=== PATIENT | female | born 1965 | race African-American/Black ===

== ENCOUNTER 2017-06-04 18:23 | Emergency (ER) | payer MEDICARE, MEDICAID ==
[~2017-06-04] VITALS: Ht 165.1 cm; Wt 84.8 kg
[~2017-06-04 18:23] MED LIST: APIX5TAB PO; ASPI-516 PO; ASPI81TA81; ATEN25TA PO; BECL80AE3 INH; CETI10CH CHEW; CLON0.1T PO; CYCL5TAB PO; FLUT50SP EACH NARE; LOSA25TA PO; MELA1TAB16; METH1POW42; METO50TA PO; MONT10TA4 PO; NAPR500T2 PO; OMEP20TA93 PO; SERT-132 PO; TRAM50TA PO; VENTAER INH
[2017-06-04 18:41] VITALS: BP 174/75; PULSE 86; RESP 16; TEMP 98.9; O2SAT 99
--- NOTE | 2017-06-04 19:46 | PD ---
HPI Chief Complaint: Dizziness Time Seen by Provider: 19:44 Travel History International Travel<30 days: No Contact w/Intl Traveler<30days: No Traveled to known affect area: No History of Present Illness HPI The patient is a 51-year-old female that complains of vertigo and elevated blood pressure for 3 days. The patient has been stable switched from atenolol 50 mg twice daily to metoprolol 50 mg twice daily and the patient states her pressure is elevated since this happened and she does not like the metoprolol. She states she has an irregular heartbeat and believes this is why she is on Eliquis. She is actually not taking the Eliquis because she states it gives her headache. She states she has a production repairer in [place] and a primary care physician and [place]. She says she is going to find another production repairer because he does not like this production repairer. She states she has been nauseated without vomiting for 2 days. She states she has a gradual onset headache in the bilateral occipital area for the last few days. The headache as a 6/10 and dull. She does have tinnitus in the right ear for the last 3 days. PFSH Past Medical History Hx Anticoagulant Therapy: Yes (asa 81mg) Anxiety: Yes Cardiac Catheterization: Yes Cardiovascular Problems: Yes (htn on meds) Coronary Artery Disease: Yes Diminished Hearing: No Hypertension: Yes Respiratory: Yes (asthma) ?: Not Tubal Ligation: Yes Past Surgical History Cardiac Surgery: Yes (age 3) Coronary Artery Bypass Graft: Yes Social History Alcohol Use: No Tobacco Use: No Substance Use: No Allergies-Medications (Allergen,Severity, Reaction): Coded Allergies: doxycycline (Verified Allergy, Severe, 06/04/17) headache, irregular heartbeat lidocaine (Verified Allergy, Severe, shaking, nerves, nausea , 06/04/17) lisinopril (Verified Allergy, Severe, 06/04/17) heart fluttering, irregular heartbeat minocycline (Verified Allergy, Severe, 06/04/17) headache, irregular heartbeat tigecycline (Verified Allergy, Severe, 06/04/17) headache, irregular heartbeat sumatriptan (Verified Allergy, Unknown, 06/04/17) Reported Meds & Prescriptions Reported Meds & Active Scripts Active Meclizine (Meclizine HCl) 25 Mg Tab 25 Mg PO TID PRN Zofran (Ondansetron HCl) 8 Mg Tab 8 Mg PO TID Naproxen 500 Mg Tab 500 Mg PO BID Take with food Metoprolol Tartrate 50 Mg Tab 50 Mg PO BID Fluticasone Nasal [place] 50 Mcg/Act Naspr 1-2 [place] EACH NARE HS Use regularly for 4-6 weeks then stop. Take 2 week breaks before restarting. Reported Eliquis (Apixaban) 5 Mg Tab 5 Mg PO BID Managed by Anthropometrist [place] Nighttime 2 mg (Melatonin-Black Cohosh-Soy Iso) 1 Tab Tab Clonidine (Clonidine HCl) 0.1 Mg Tab 0.1 Mg PO DIRECTED Tramadol (Tramadol HCl) 50 Mg Tab 50 Mg PO DIRECTED PRN Managed by Pain Mgmt Sertraline (Sertraline HCl) 50 Mg Tab 50 Mg PO BID Managed by Psychiatrist Qvar Inh (Beclomethasone Dipropionate) 80 Mcg/Act Aero 1 Puff INH BID Omeprazole 20 Mg Tab 20 Mg PO DAILY Losartan (Losartan Potassium) 25 Mg Tab 25 Mg PO DAILY Aspir-81 (Aspirin) 81 Mg Tabdr Ventolin Hfa 18 GM Inh (Albuterol Sulfate) 90 Mcg/Act Aer 2 Puff INH Q4-6H PRN Methocarbamol (Methocarbamol (Bulk)) Unknown Strength Pow Unknown Dose Managed by Pain Mgmt Montelukast (Montelukast Sodium) 10 Mg Tab 10 Mg PO HS Flexeril (Cyclobenzaprine HCl) 5 Mg Tab 5 Mg PO BID Managed by Pain Mgmt Cetirizine (Cetirizine HCl) 10 Mg Chew 10 Mg CHEW DAILY Review of Systems Except as stated in HPI: all other systems reviewed are Neg Physical Exam Narrative GENERAL: The patient is alert, oriented 3 and slight apparent distress with her headache. Her vital signs show blood pressure 170/75 but are otherwise normal. SKIN: Focused skin assessment warm/dry. HEAD: Atraumatic. Normocephalic. EYES: Pupils equal and round. No scleral icterus. No injection or drainage. ENT: No nasal bleeding or discharge. Mucous membranes pink and moist. The tympanic membranes are clear and the throat is clear. NECK: Trachea midline. No JVD. There is no meningismus and the patient flexes neck fully without any hesitation so that the chin touches the chest. CARDIOVASCULAR: Regular rate and rhythm. No murmur appreciated. RESPIRATORY: No accessory muscle use. Clear to auscultation. Breath sounds equal bilaterally. GASTROINTESTINAL: Abdomen soft, non-tender, nondistended. Hepatic and splenic margins not palpable. MUSCULOSKELETAL: No obvious deformities. No clubbing. No cyanosis. No edema. NEUROLOGICAL: Awake and alert. No obvious cranial nerve deficits. Motor grossly within normal limits. Normal speech and gait. PSYCHIATRIC: Appropriate mood and affect; insight and judgment normal. Data Data Last Documented VS Vital Signs Date Time Temp Pulse Resp B/P (MAP) Pulse Ox O2 Delivery O2 Flow Rate FiO2 06/04/17 21:22 70 16 143/71 (95) 98 Room Air 06/04/17 18:41 98.9 Orders Orders Electrocardiogram (06/04/17 19:46) Complete Blood Count With Diff (06/04/17 19:46) Comprehensive Metabolic Panel (06/04/17 19:46) Troponin I (06/04/17 19:46) Urinalysis - C+S If Indicated (06/04/17 19:46) Ondansetron Inj (Zofran Inj) (06/04/17 20:00) Meclizine (Antivert) (06/04/17 20:00) Ct Brain W/O Iv Contrast(Rout) (06/04/17 19:52) Ed Discharge Order (06/04/17 21:55) Labs Laboratory Tests Test 06/04/17 20:12 06/04/17 21:25 White Blood Count 11.7 TH/MM3 Red Blood Count 4.08 MIL/MM3 Hemoglobin 11.8 GM/DL Hematocrit 35.7 % Mean Corpuscular Volume 87.4 FL Mean Corpuscular Hemoglobin 28.9 PG Mean Corpuscular Hemoglobin Concent 33.1 % Red Cell Distribution Width 13.2 % Platelet Count 342 TH/MM3 Mean Platelet Volume 8.3 FL Neutrophils (%) (Auto) 55.9 % Lymphocytes (%) (Auto) 32.7 % Monocytes (%) (Auto) 7.6 % Eosinophils (%) (Auto) 2.6 % Basophils (%) (Auto) 1.2 % Neutrophils # (Auto) 6.6 TH/MM3 Lymphocytes # (Auto) 3.8 TH/MM3 Monocytes # (Auto) 0.9 TH/MM3 Eosinophils # (Auto) 0.3 TH/MM3 Basophils # (Auto) 0.1 TH/MM3 CBC Comment DIFF FINAL Differential Comment Blood Urea Nitrogen 11 MG/DL Creatinine 0.83 MG/DL Random Glucose 96 MG/DL Total Protein 7.8 GM/DL Albumin 3.4 GM/DL Calcium Level 8.4 MG/DL Alkaline Phosphatase 92 U/L Aspartate Amino Transf (AST/SGOT) 18 U/L Alanine Aminotransferase (ALT/SGPT) 25 U/L Total Bilirubin 0.3 MG/DL Sodium Level 139 MEQ/L Potassium Level 3.5 MEQ/L Chloride Level 107 MEQ/L Carbon Dioxide Level 25.8 MEQ/L Anion Gap 6 MEQ/L Estimat Glomerular Filtration Rate 87 ML/MIN Troponin I LESS THAN 0.02 NG/ML Urine Color YELLOW Urine Turbidity CLEAR Urine pH 6.0 Urine Specific [place] 1.015 Urine Protein NEG mg/dL Urine Glucose (UA) NEG mg/dL Urine Ketones NEG mg/dL Urine Occult Blood MOD Urine Nitrite NEG Urine Bilirubin NEG Urine Leukocyte Esterase NEG Urine RBC 9-14 /hpf Urine WBC 0-2 /hpf Urine Squamous Epithelial Cells 6-8 /hpf Urine Bacteria NONE /hpf Microscopic Urinalysis Comment CULT NOT INDICATED MDM Medical Decision Making Medical Screen Exam Complete: Yes Emergency Medical Condition: Yes Medical Record Reviewed: Yes Interpretation(s) The CBC shows a white count 11,700 but is otherwise normal. The complete metabolic profile shows a GFR of 87 but is otherwise normal. The troponin I is normal. The urinalysis shows moderate occult blood and 9-14 red cells but is otherwise unremarkable and culture is not indicated. Differential Diagnosis Hypo-/hyperglycemia, electrolyte disorder, intracranial bleed, intracranial mass , hypertensive urgency, hypertensive headache, viral labyrinthitis, benign positional vertigo Narrative Course The patient has vertigo. This is likely due to viral labyrinthitis. She likely has a viral gastritis as well. The tinnitus in the right ear suggests right ear involvement with labyrinthitis. Diagnosis Primary Impression: Viral labyrinthitis Additional Impression: Viral gastritis Additional Instructions: Make sure you stay well-hydrated. Also, as we discussed, because of about driving when you have the vertigo. He may not be able to drive the vertigo is significant. Follow-up with your primary care physician next week. Med/Other Pt SpecificInfo: Prescription(s) given Scripts Meclizine (Meclizine) 25 Mg Tab 25 MG PO TID Y for VERTIGO, #30 TAB 0 Refills Prov: Charlie Hall MD 06/04/17 Ondansetron (Zofran) 8 Mg Tab 8 MG PO TID for Nausea/Vomiting, #30 TAB 0 Refills Prov: Charlie Hall MD 06/04/17 Disposition: 01 DISCHARGE HOME Condition: Stable Charlie Hall MD Jun 04, 2017 19:46
[2017-06-04 19:51] VITALS: BP 165/82; PULSE 84; RESP 16; O2SAT 99
[2017-06-04] MEDS ORDERED: ONDANSETRON HCL 4 MG/2 ML VIAL IV ONE (20:00)
[2017-06-04] MEDS ORDERED: MECLIZINE HCL 25 MG TAB PO ONE (20:00)
[2017-06-04 20:24] LABS: AUTOMATED NEUTROPHIL # 6.6 TH/MM3 (1.8-7.7); BASOPHIL # 0.1 TH/MM3 (0-0.2); BASOPHIL % 1.2 % (0.0-2.0); EOSINOPHIL # 0.3 TH/MM3 (0-0.4); EOSINOPHIL % 2.6 % (0.0-4.0); HEMATOCRIT 35.7 % (35.0-46.0); HEMOGLOBIN 11.8 GM/DL (11.6-15.3); LYMPH % 32.7 % (9.0-44.0); LYMPHOCYTE # 3.8 TH/MM3 (1.0-4.8); MEAN CELL VOLUME 87.4 FL (80.0-100.0); MEAN CORPUSCULAR HEMOGLOBIN 28.9 PG (27.0-34.0); MEAN CORPUSCULAR HGB CONC 33.1 % (32.0-36.0); MEAN PLATELET VOLUME 8.3 FL (7.0-11.0); MONO % 7.6 % (0.0-8.0); MONOCYTE # 0.9 TH/MM3 (0-0.9); NEUT % 55.9 % (16.0-70.0); PLATELET COUNT 342 TH/MM3 (150-450); RED BLOOD COUNT 4.08 MIL/MM3 (4.00-5.30); RED CELL DISTRIBUTION WIDTH 13.2 % (11.6-17.2); WHITE BLOOD COUNT 11.7 TH/MM3 (4.0-11.0)
[2017-06-04 20:33] LABS: CHLORIDE 107 MEQ/L (98-107); SODIUM (NA) 139 MEQ/L (136-145)
[2017-06-04 20:36] LABS: ALBUMIN 3.4 GM/DL (3.4-5.0); BICARBONATE 25.8 MEQ/L (21.0-32.0); CALCIUM 8.4 MG/DL (8.5-10.1); GLUCOSE,RANDOM 96 MG/DL (74-106)
[2017-06-04 20:37] LABS: BLOOD UREA NITROGEN 11 MG/DL (7-18)
[2017-06-04 20:39] LABS: ALT (GPT) 25 U/L (10-53); AST (GOT) 18 U/L (15-37)
[2017-06-04 20:40] LABS: CREATININE 0.83 MG/DL (0.50-1.00); GLOMERULAR FILTRATION RATE 87 ML/MIN (>89)
[2017-06-04 20:41] LABS: TOTAL BILIRUBIN ADULT 0.3 MG/DL (0.2-1.0); TOTAL PROTEIN 7.8 GM/DL (6.4-8.2)
[2017-06-04 20:42] LABS: ALKALINE PHOSPHATASE 92 U/L (45-117)
[2017-06-04 20:44] LABS: TROPONIN I LESS THAN 0.02 NG/ML (0.02-0.05)
--- NOTE | 2017-06-04 20:46 | RADRPT ---
EXAM DATE/TIME: 06/04/2017 20:17 [facility] COMPARISON: No previous studies available for comparison. INDICATIONS : High blood pressure, vertigo X 3days RADIATION DOSE: 57.69 CTDIvol (mGy) MEDICAL HISTORY : Hypertension. Cardiovascular disease SURGICAL HISTORY : CABG ENCOUNTER: Initial ACUITY: 3 days PAIN SCALE: 0/10 LOCATION: cranial TECHNIQUE: Multiple contiguous axial images were obtained of the head. Using automated exposure control and adj ustment of the mA and/or kV according to patient size, radiation dose was kept as low as reasonably a chievable to obtain optimal diagnostic quality images. DICOM format image data is available electro nically for review and comparison. FINDINGS: There is no evidence for intracranial hemorrhage, mass effect, mass lesions, edema, or extra-axial fl uid collections. The visualized bony structures appear intact. The ventricles are normal size for t he patient's age. There are no signs of acute infarction for technique. CONCLUSION: Unremarkable study. Marva Cates MD on June 04, 2017 at 20:42 Board Certified Radiologist. This report was verified electronically.
[2017-06-04 21:22] VITALS: BP 143/71; PULSE 70; RESP 16; O2SAT 98
[2017-06-04] MEDS ORDERED: ZOFR8TAB PO (21:34)
[2017-06-04] MEDS ORDERED: MECL-62 PO (21:36)
[2017-06-04 21:37] LABS: BILIRUBIN, URINE NEG (NEG); BLOOD, URINE MOD (NEG); GLUCOSE,URINE NEG (NEG); KETONE, URINE NEG (NEG); NITRITE,URINE NEG (NEG); URINE LEUKOCYTE ESTERASE NEG (NEG)
[2017-06-04 21:38] LABS: URINE COLOR YELLOW (YELLW/STRAW)
[2017-06-04 21:41] LABS: WBC, URINE 0-2 /hpf (0-5)
[2017-06-04 22:31] VITALS: BP 140/66; TEMP 98.6
--- NOTE | 2017-06-05 13:27 | EKG ---
Date Performed: 06/04/2017 Time Performed: 19:52:50 PTAGE: 51 years EKG: Sinus rhythm NORMAL ECG Compared to PREVIOUS TRACING , CA interval slightly longer, anterior QT changes have resolved. PREVIO US TRACIN07/28/2013 13.19 DOCTOR: Yonny Scales Interpretating Date/Time 06/05/2017 13:26:32
== END 2017-06-04 22:35 | disposition home or self-care (01) ==
LOC: PHED 18:23
DX: H83.01 Labyrinthitis, right ear (principal); A08.4 Viral intestinal infection, unspecified; R42 Dizziness and giddiness; F41.9 Anxiety disorder, unspecified; I10 Essential (primary) hypertension; I25.10 Atherosclerotic heart disease of native coronary artery without angina pectoris; J45.909 Unspecified asthma, uncomplicated; Z79.82 Long term (current) use of aspirin; Z79.899 Other long term (current) drug therapy
CPT/HCPCS: 70450; 80053; 81001; 84484; 85025; 93005; 96374; 99285; J2405

== ENCOUNTER 2017-06-15 18:55 | Emergency (ER) | payer MEDICARE, MEDICAID ==
[~2017-06-15] VITALS: Ht 165.1 cm; Wt 83.6 kg
[~2017-06-15 18:55] MED LIST changes: +MECL-62 PO; +ZOFR8TAB PO
[2017-06-15 18:57] VITALS: BP 190/94; PULSE 63; RESP 16; TEMP 98.9; O2SAT 99
[2017-06-15 19:28] VITALS: BP 177/89; PULSE 64; RESP 18; O2SAT 100
[2017-06-15] MEDS ORDERED: MECLIZINE HCL 25 MG TAB PO ONE (20:00)
[2017-06-15] MEDS ORDERED: ONDANSETRON HCL 4 MG/2 ML VIAL IVP ONE (20:00)
[2017-06-15] MEDS ORDERED: SODIUM CHLORIDE 0.9% FLUSH 10 ML FLUSH IV FLUSH PRN (20:00)
[2017-06-15 20:44] LABS: AUTOMATED NEUTROPHIL # 5.2 TH/MM3 (1.8-7.7); BASOPHIL # 0.1 TH/MM3 (0-0.2); BASOPHIL % 0.8 % (0.0-2.0); EOSINOPHIL # 0.2 TH/MM3 (0-0.4); EOSINOPHIL % 2.3 % (0.0-4.0); HEMATOCRIT 34.4 % (35.0-46.0); HEMOGLOBIN 11.5 GM/DL (11.6-15.3); LYMPH % 33.3 % (9.0-44.0); LYMPHOCYTE # 3.1 TH/MM3 (1.0-4.8); MEAN CELL VOLUME 88.2 FL (80.0-100.0); MEAN CORPUSCULAR HEMOGLOBIN 29.4 PG (27.0-34.0); MEAN CORPUSCULAR HGB CONC 33.4 % (32.0-36.0); MEAN PLATELET VOLUME 8.3 FL (7.0-11.0); MONO % 7.2 % (0.0-8.0); MONOCYTE # 0.7 TH/MM3 (0-0.9); NEUT % 56.4 % (16.0-70.0); PLATELET COUNT 372 TH/MM3 (150-450); RED CELL DISTRIBUTION WIDTH 14.3 % (11.6-17.2); WHITE BLOOD COUNT 9.2 TH/MM3 (4.0-11.0)
[2017-06-15 20:49] LABS: BILIRUBIN, URINE NEG (NEG); BLOOD, URINE TRACE (NEG); GLUCOSE,URINE NEG (NEG); KETONE, URINE NEG (NEG); NITRITE,URINE NEG (NEG); SQUAMOUS EPITHELIAL CELL URINE <1 /hpf (0-5); URINE COLOR COLORLESS (YELLW/STRAW); URINE LEUKOCYTE ESTERASE NEG (NEG)
[2017-06-15 20:53] LABS: PROTHROMBIN TIME - PATIENT 10.6 SEC (9.8-11.6)
--- NOTE | 2017-06-15 20:55 | PD ---
HPI Chief Complaint: Abdominal Pain Time Seen by Provider: 19:15 Travel History International Travel<30 days: No Contact w/Intl Traveler<30days: No Traveled to known affect area: No History of Present Illness HPI 51-year-old female presents to the ED for evaluation of multiple medical complaints. Patient states that she had ongoing dizziness for approximately 10 days. She states that she feels like the room is spinning. She also complains of lower abdominal discomfort, urinary urgency and vaginal bleeding. She states that she has been without a period for the last 2 years. She states that she's had 3 days of heavy bleeding. This is "nearly" resolved on presentation. She denies fevers, chills, chest pain, palpitations, shortness of breath, nausea, vomiting, changes in bowel habits. She complains of high blood pressure throughout the course of the day. She states that "everything" makes her nauseated. She last saw her senior web architect one year ago, normal checkup. She was evaluated at [facility] for dizziness and discharged with meclizine. She endorses compliance with the medications. She states that she saw her primary care provider yesterday who prescribed her Flonase nasal spray secondary to allergic rhinitis. PFSH Past Medical History Hx Anticoagulant Therapy: Yes (asa 81mg) Arthritis: Yes Asthma: Yes Atrial Fibrillation: Yes Anxiety: Yes Heart Rhythm Problems: No Cardiac Catheterization: Yes Cardiovascular Problems: Yes (htn on meds) High Cholesterol: No Congestive Heart Failure: No COPD: Yes Coronary Artery Disease: Yes Diabetes: No Diminished Hearing: No GERD: Yes Hypertension: Yes Respiratory: Yes (asthma) Migraines: Yes ?: Not Menopausal: Yes Dilation and Curettage (D&C): Yes Tubal Ligation: Yes Past Surgical History Cardiac Surgery: Yes (age 3) Coronary Artery Bypass Graft: Yes Genitourinary Surgery: Yes ( kidney x5 (recurrent stones)) Hysterectomy: No Social History Alcohol Use: No Tobacco Use: No Substance Use: No Allergies-Medications (Allergen,Severity, Reaction): Coded Allergies: doxycycline (Verified Allergy, Severe, 06/15/17) headache, irregular heartbeat lidocaine (Verified Allergy, Severe, shaking, nerves, nausea , 06/15/17) lisinopril (Verified Allergy, Severe, 06/15/17) heart fluttering, irregular heartbeat minocycline (Verified Allergy, Severe, 06/15/17) headache, irregular heartbeat tetracycline (Verified Allergy, Severe, Anaphylaxis, 06/15/17) tigecycline (Verified Allergy, Severe, 06/15/17) headache, irregular heartbeat morphine (Verified Allergy, Intermediate, Hallucinations, 06/15/17) sumatriptan (Verified Allergy, Unknown, 06/15/17) apixaban (Verified Adverse Reaction, Mild, Headache, 06/15/17) Uncoded Allergies: GI COCKTAIL (Allergy, Severe, 06/06/17) Reported Meds & Prescriptions Reported Meds & Active Scripts Active Prednisone 10 Mg Tab 10 Mg PO DAILY 5 Days Meclizine (Meclizine HCl) 25 Mg Tab 25 Mg PO TID PRN Zofran (Ondansetron HCl) 8 Mg Tab 8 Mg PO TID Naproxen 500 Mg Tab 500 Mg PO BID Take with food Fluticasone Nasal [place] 50 Mcg/Act Naspr 1-2 [place] EACH NARE HS Use regularly for 4-6 weeks then stop. Take 2 week breaks before restarting. Reported Aspirin 81 Mg Chew 81 Mg PO DAILY [place] Nighttime 2 mg (Melatonin-Black Cohosh-Soy Iso) 1 Tab Tab Atenolol 25 Mg Tab 100 Mg PO BID Clonidine (Clonidine HCl) 0.1 Mg Tab 0.1 Mg PO DIRECTED Tramadol (Tramadol HCl) 50 Mg Tab 50 Mg PO DIRECTED PRN Managed by Pain Mgmt Sertraline (Sertraline HCl) 50 Mg Tab 50 Mg PO BID Managed by Psychiatrist Qvar Inh (Beclomethasone Dipropionate) 80 Mcg/Act Aero 1 Puff INH BID Omeprazole 20 Mg Tab 20 Mg PO DAILY Ventolin Hfa 18 GM Inh (Albuterol Sulfate) 90 Mcg/Act Aer 2 Puff INH Q4-6H PRN Methocarbamol (Methocarbamol (Bulk)) Unknown Strength Pow Unknown Dose Managed by Pain Mgmt Montelukast (Montelukast Sodium) 10 Mg Tab 10 Mg PO HS Flexeril (Cyclobenzaprine HCl) 5 Mg Tab 5 Mg PO BID Managed by Pain Mgmt Cetirizine (Cetirizine HCl) 10 Mg Chew 10 Mg CHEW DAILY Review of Systems Except as stated in HPI: all other systems reviewed are Neg Physical Exam Narrative GENERAL: Well-nourished, well-developed female in no acute distress. SKIN: Focused skin assessment warm/dry. HEAD: Normocephalic. EYES: No scleral icterus. No injection or drainage. ENT: Pearly butler tympanic membranes bilaterally. Mildly erythematous, boggy nasal mucosa. Mild posterior oropharyngeal cobblestoning. No erythema, edema, exudates. Uvula midline. Airway patent. NECK: Supple, trachea midline. No JVD or lymphadenopathy. CARDIOVASCULAR: Regular rate and rhythm without murmurs, gallops, or rubs. RESPIRATORY: Breath sounds clear and equal bilaterally. No accessory muscle use. GASTROINTESTINAL: Abdomen soft, nondistended. Mild suprapubic tenderness. Active bowel sounds. MUSCULOSKELETAL: No cyanosis, or edema. NEUROLOGICAL: Awake and alert. Cranial nerves II through XII intact. Motor and sensory grossly within normal limits. Five out of 5 muscle strength in all muscle groups. Normal speech. BACK: Nontender without obvious deformity. No CVA tenderness. Data Data Last Documented VS Vital Signs Date Time Temp Pulse Resp B/P (MAP) Pulse Ox O2 Delivery O2 Flow Rate FiO2 06/15/17 21:48 06/15/17 19:28 64 18 100 Room Air 06/15/17 18:57 98.9 Orders Orders Beta Hcg (Quant/Titer) (06/15/17 19:49) Complete Blood Count With Diff (06/15/17 19:49) Comprehensive Metabolic Panel (06/15/17 19:49) Prothrombin Time / Inr (Pt) (06/15/17 19:49) Act Partial Throm Time (Ptt) (06/15/17 19:49) Urinalysis - C+S If Indicated (06/15/17 19:49) Iv Access Insert/Monitor (06/15/17 19:49) Ecg Monitoring (06/15/17 19:49) Oximetry (06/15/17 19:49) Ondansetron Inj (Zofran Inj) (06/15/17 20:00) Sodium Chloride 0.9% Flush (Ns Flush) (06/15/17 20:00) Electrocardiogram (06/15/17 19:49) Ed Urine Pregnancytest Poc (06/15/17 19:49) Meclizine (Antivert) (06/15/17 20:00) Ed Discharge Order (06/15/17 21:17) Labs Laboratory Tests Test 06/15/17 20:00 White Blood Count 9.2 TH/MM3 Red Blood Count 3.90 MIL/MM3 Hemoglobin 11.5 GM/DL Hematocrit 34.4 % Mean Corpuscular Volume 88.2 FL Mean Corpuscular Hemoglobin 29.4 PG Mean Corpuscular Hemoglobin Concent 33.4 % Red Cell Distribution Width 14.3 % Platelet Count 372 TH/MM3 Mean Platelet Volume 8.3 FL Neutrophils (%) (Auto) 56.4 % Lymphocytes (%) (Auto) 33.3 % Monocytes (%) (Auto) 7.2 % Eosinophils (%) (Auto) 2.3 % Basophils (%) (Auto) 0.8 % Neutrophils # (Auto) 5.2 TH/MM3 Lymphocytes # (Auto) 3.1 TH/MM3 Monocytes # (Auto) 0.7 TH/MM3 Eosinophils # (Auto) 0.2 TH/MM3 Basophils # (Auto) 0.1 TH/MM3 CBC Comment DIFF FINAL Differential Comment Prothrombin Time 10.6 SEC Prothromb Time International Ratio 1.0 RATIO Activated Partial Thromboplast Time 25.3 SEC Urine Color COLORLESS Urine Turbidity CLEAR Urine pH 7.0 Urine Specific [place] 1.002 Urine Protein NEG mg/dL Urine Glucose (UA) NEG mg/dL Urine Ketones NEG mg/dL Urine Occult Blood TRACE Urine Nitrite NEG Urine Bilirubin NEG Urine Urobilinogen LESS THAN 2.0 MG/DL Urine Leukocyte Esterase NEG Urine WBC LESS THAN 1 /hpf Urine Squamous Epithelial Cells <1 /hpf Microscopic Urinalysis Comment CULT NOT INDICATED Blood Urea Nitrogen 10 MG/DL Creatinine 0.76 MG/DL Random Glucose 84 MG/DL Total Protein 7.7 GM/DL Albumin 3.4 GM/DL Calcium Level 8.7 MG/DL Alkaline Phosphatase 94 U/L Aspartate Amino Transf (AST/SGOT) 44 U/L Alanine Aminotransferase (ALT/SGPT) 39 U/L Total Bilirubin 0.2 MG/DL Sodium Level 141 MEQ/L Potassium Level 4.1 MEQ/L Chloride Level 106 MEQ/L Carbon Dioxide Level 28.8 MEQ/L Anion Gap 6 MEQ/L Estimat Glomerular Filtration Rate 96 ML/MIN Human Chorionic Gonadotropin, Quant LESS THAN 1 MIU/ML MDM Medical Decision Making Medical Screen Exam Complete: Yes Emergency Medical Condition: Yes Differential Diagnosis Dysmenorrhea versus anemia versus hypertension versus vertigo versus allergic rhinitis versus other Narrative Course 51-year-old female presents to the ED for evaluation of multiple medical complaints. Patient states that she had ongoing vertigo for approximately 10 days. She also complains of lower abdominal discomfort, urinary urgency and vaginal bleeding. She states that she's had 3 days of heavy bleeding for the first time in 2 years. Improved on presentation. She last saw her senior web architect one year ago, normal checkup. History of fibroids. She was evaluated at [facility] for dizziness and discharged with meclizine. She endorses compliance with the medications. She states that she saw her primary care provider yesterday who prescribed her Flonase nasal spray secondary to allergic rhinitis/ viral labyrinthitis. Patient's afebrile, pulse 63, BP 190/94 on presentation. Physical exam reveals no focal neuro deficits. Abdominal exam reveals mild suprapubic tenderness present otherwise unremarkable. IV was established. Patient was administered 4 mg Zofran IV and 25 mg meclizine by mouth. EKG rate 57, sinus bradycardia. Normal intervals. Normal axis. No acute ST changes. Reviewed by Dr. Elliott. CBC hemoglobin 11.5, chronic according to chart review, improved from last visit. INR 1.0. Chemistry unremarkable. UA no culture indicated. On recheck the patient reports improvement of her symptoms. I discussed the results of the workup with the patient. I recommend that she follow up with a senior web architect for further evaluation of her dysmenorrhea. Se is instructed to continue with meclizine, Flonase and Zofran as previously prescribed. She is prescribed a brief course of 10 mg prednisone. She is instructed to follow-up with research spec should symptoms persist. She indicated understanding of instructions and is agreeable to a care plan. The patient is stable and discharged home. Diagnosis Primary Impression: Dysmenorrhea Additional Impression: Dizziness Referrals: Ear / Nose / Throat Specialist Deputy Director Of Nursing Patient Instructions: Dizziness (ED), Dysmenorrhea (ED), General Instructions, Narcotic given in the ED Additional Instructions: Rest, hydrate. Take meclizine and Zofran as prescribed. Continue with intranasal steroids as prescribed. Take prednisone once daily for 5 days. Follow-up with the ear nose throat specialist. Follow-up with the senior web architect. Return to the ED for worsening symptoms or any urgent or emergent medical condition. Scripts Prednisone (Prednisone) 10 Mg Tab 10 MG PO DAILY for 5 Days, #5 TAB 0 Refills Prov: Ethan Elliott MD 06/15/17 Disposition: 01 DISCHARGE HOME Condition: Stable Gabriela Cheema Jun 15, 2017 20:55
[2017-06-15 21:05] LABS: ALBUMIN 3.4 GM/DL (3.4-5.0); ALT (GPT) 39 U/L (10-53); AST (GOT) 44 U/L (15-37); BICARBONATE 28.8 MEQ/L (21.0-32.0); BLOOD UREA NITROGEN 10 MG/DL (7-18); CALCIUM 8.7 MG/DL (8.5-10.1); CHLORIDE 106 MEQ/L (98-107); CREATININE 0.76 MG/DL (0.50-1.00); GLOMERULAR FILTRATION RATE 96 ML/MIN (>89); GLUCOSE,RANDOM 84 MG/DL (74-106); SODIUM (NA) 141 MEQ/L (136-145)
[2017-06-15 21:09] LABS: ALKALINE PHOSPHATASE 94 U/L (45-117); TOTAL BILIRUBIN ADULT 0.2 MG/DL (0.2-1.0); TOTAL PROTEIN 7.7 GM/DL (6.4-8.2)
[2017-06-15] MEDS ORDERED: PRED10 PO (21:21)
--- NOTE | 2017-06-16 14:38 | EKG ---
Date Performed: 06/15/2017 Time Performed: 20:06:04 PTAGE: 51 years EKG: SINUS BRADYCARDIA BORDERLINE ECG PREVIOUS TRACING : 06/04/2017 19.52 Since the prior tracing, there has been no significant gutierrez DOCTOR: Bryon Wells Interpretating Date/Time 06/16/2017 14:33:08
== END 2017-06-15 21:52 | disposition home or self-care (01) ==
LOC: NEPC 18:55
DX: N94.6 Dysmenorrhea, unspecified (principal); R42 Dizziness and giddiness; N93.9 Abnormal uterine and vaginal bleeding, unspecified; I10 Essential (primary) hypertension; F41.9 Anxiety disorder, unspecified; I48.91 Unspecified atrial fibrillation; I25.10 Atherosclerotic heart disease of native coronary artery without angina pectoris; J44.9 Chronic obstructive pulmonary disease, unspecified; R94.31 Abnormal electrocardiogram [ECG] [EKG]
CPT/HCPCS: 80053; 81001; 84702; 84703; 85025; 85610; 85730; 93005; 96374; 99284; J2405

== ENCOUNTER 2018-01-19 08:45 | Observation (INO) ==
--- NOTE | 2018-01-19 09:26 | ED ---
HPI General Chief Complaint: Chest Pain Stated Complaint: Chest Pains Time Seen by Provider: 01/19/18 09:05 Source: patient Mode of arrival: ambulatory Limitations: no limitations History of Present Illness HPI narrative: Patient is a 52-year-old female with past medical history of coronary artery disease open heart surgery asthma hypertension presenting with complaint of chest pain since yesterday. She described as pressure on and off worse when she lays down radiating to her back. She thought it was dyspepsia so she took some flip sam without any relief of her symptoms. She also reports increased urination. Had history of kidney stones. There is report that she has history of COPD or atrial fibrillation however the patient denies that she is in sinus rhythm today. She does not have COPD but she does have asthma. She did take aspirin at home. MD complaint: chest pain STEMI Alert: No Onset (ago): day(s) (1) Duration: intermittent Onset: during rest Pain location: left chest Severity: severe Severity scale (1-10): 8 Quality: heaviness Pain radiation: LUE and neck Relieving factors: nothing Exacerbating factors: supine and palpation Associated symptoms: nausea Treatments prior to arrival chest pain: aspirin Related Data On Oral Contraceptives: No Home Medications Medication Instructions Recorded Confirmed aspirin [Aspir-81] 81 mg PO DAILY 01/19/18 01/19/18 atenolol 25 mg PO DAILY 01/19/18 01/19/18 Allergies Allergy/AdvReac Type Severity Reaction Status Date / Time doxycycline Allergy Severe Hives Verified 01/19/18 09:03 lidocaine Allergy Severe shaking, Verified 01/19/18 09:03 nerves, nausea lisinopril Allergy Severe Headache Verified 01/19/18 09:03 minocycline Allergy Severe Hives Verified 01/19/18 09:03 tetracycline Allergy Severe Anaphylaxis Verified 01/19/18 09:03 tigecycline Allergy Severe Hives Verified 01/19/18 09:03 morphine Allergy Intermediate Hallucinati Verified 01/19/18 09:03 ons sumatriptan Allergy Unknown Hives Verified 01/19/18 09:03 apixaban AdvReac Mild Headache Verified 01/19/18 09:03 GI COCKTAIL Allergy Severe Tingling Uncoded 01/19/18 09:03 Review of Systems ROS: all other systems reviewed are negative Cardiovascular Reports chest pain, Reports chest pain at rest, Denies chest pain with activity , Denies syncope, Denies rapid heart rate, Denies pedal edema, Denies edema, Denies irregular heart rhythm, Denies leg edema, Denies lightheadedness, Reports radiating jaw, neck or arm pain, Denies palpitations, Denies dyspnea, Denies dyspnea on exertion, Denies orthopnea and Denies slow heart rate Respiratory Denies chest congestion, Denies cough, Denies hemoptysis, Denies pain with cough , Denies dyspnea, Denies dyspnea on exertion, Denies stridor and Denies wheezing [facility] Medical History Medical History Afib (Acute) Asthma (Acute) HTN (hypertension) (Acute) Surgical History Surgical History History of open heart surgery (Acute) Social History Social History Substance History: No History of Abuse Second Hand Smoke Exposure: No Smoking Status: Never smoker How Often Do You Have a Drink Containing Alcohol: Never Recent Travel in [facility] within the Last 8 Weeks: No Recent Out of Country Travel within the Last 8 Weeks: No Immunization History Tetanus Immunization: <5 Years Hx Influenza Vaccine This Season: No Exam Narrative Exam Narrative: GENERAL: Alert and oriented in no distress SKIN: Focused skin assessment warm/dry. HEAD: Atraumatic. Normocephalic. EYES: Pupils equal and round. No scleral icterus. No injection or drainage. ENT: No nasal bleeding or discharge. Mucous membranes pink and moist. NECK: Trachea midline. No JVD. CARDIOVASCULAR: Regular rate and rhythm. No murmur appreciated. RESPIRATORY: No accessory muscle use. Clear to auscultation. Breath sounds equal bilaterally. GASTROINTESTINAL: Abdomen soft, non-tender, nondistended. Hepatic and splenic margins not palpable. MUSCULOSKELETAL: No obvious deformities. No clubbing. No cyanosis. No edema. NEUROLOGICAL: Awake and alert. No obvious cranial nerve deficits. Motor grossly within normal limits. Normal speech. PSYCHIATRIC: Appropriate mood and affect; insight and judgment normal. Course Hospital Course: Patient with significant cardiac history. Will initiate cardiac workup. Blood pressure initially 164/77 she does have some chest tightness at this time we will give her nitroglycerin sublingual as well as Zofran for nausea. Reevaluation(s) Reevaluation #1: States pain resolved. Blood pressure 148/69. Discussed with her we will replace her to the chest pain unit for observation and serial cardiac enzymes. Patient in agreement. Time: 11:31 Initial Documented Vital Signs Temperature 98.5 F 01/19/18 08:56 Pulse Rate 69 01/19/18 08:56 Respiratory Rate 14 01/19/18 08:56 Blood Pressure 164/77 H 01/19/18 08:56 Pulse Oximetry 99 01/19/18 08:56 Last Documented Vital Signs Temperature 98.5 F 01/19/18 08:56 Pulse Rate 62 01/19/18 11:00 Respiratory Rate 18 01/19/18 11:00 Blood Pressure 148/69 H 01/19/18 11:00 Pulse Oximetry 100 01/19/18 11:00 Medical Decision Making MDM Narrative Medical decision making narrative: Initial cardiac workup has been unremarkable however due to the fact that the symptoms started last night and the patient has an extensive cardiac history we will be placing under observation to the chest pain unit for serial cardiac enzymes. Stable alert and oriented no focal deficits. Medical Screen Exam Complete: Yes Emergency Medical Condition: Yes Medical Records Medical records reviewed: Yes I reviewed the patient's medical records. Lab Data Lab results reviewed: Yes I reviewed the patient's lab results. Result diagrams: 01/19/18 09:20 01/19/18 09:20 Lab Results 01/19/18 01/19/18 01/19/18 Range/Units 09:20 09:20 09:20 WBC 8.1 (4.0-11.0) th/mm3 RBC 4.35 (4.00-5.30) mil/mm3 Hgb 12.7 (11.6-15.3) gm/dL Hct 38.9 (35.0-46.0) % MCV 89.6 (80.0-100.0) fL MCH 29.2 (27.0-34.0) pg MCHC 32.6 (32.0-36.0) % RDW 13.7 (11.6-17.2) % Plt Count 359 (150-450) th/mm3 MPV 8.0 (7.0-11.0) fL Neut % (Auto) 70.5 H (16.0-70.0) % Lymph % (Auto) 22.5 (9.0-44.0) % Evangeline % (Auto) 4.7 (0.0-8.0) % Eos % (Auto) 1.8 (0.0-4.0) % Baso % (Auto) 0.5 (0.0-2.0) % Neut # (Auto) 5.7 (1.8-7.7) th/mm3 Lymph # (Auto) 1.8 (1.0-4.8) th/mm3 Evangeline # (Auto) 0.4 (0.0-0.9) th/mm3 Eos # (Auto) 0.1 (0.0-0.4) th/mm3 Baso # (Auto) 0.0 (0.0-0.2) th/mm3 WBC Differential . Differential Comment Auto diff final PT 10.9 (9.8-11.6) sec INR 1.1 Ratio APTT 25.7 (24.3-30.1) sec Sodium 142 (136-145) meq/L Potassium 3.7 (3.5-5.1) meq/L Chloride 107 (98-107) meq/L Carbon Dioxide 27.5 (21.0-32.0) meq/L Anion Gap 8 (5-15) meq/L BUN 11 (7-18) mg/dL Creatinine 0.80 (0.50-1.00) mg/dL Estimated GFR Greater than 89 (>89) mL/min Random Glucose 148 H (74-106) mg/dL Calcium 9.0 (8.5-10.1) mg/dL Total Bilirubin 0.2 (0.2-1.0) mg/dL AST 24 (15-37) U/L ALT 34 (10-53) U/L Alkaline Phosphatase 95 (45-117) U/L Total Creatine Kinase 159 (26-192) U/L CK-MB (CK-2) Less than 1.0 (0.5-3.6) ng/mL Troponin I Less than 0.02 L (0.02-0.05) ng/mL B-Natriuretic Peptide (0-100) pg/mL Total Protein 8.2 (6.4-8.2) g/dL Albumin 3.5 (3.4-5.0) g/dL Lipase 108 (73-393) U/L 01/19/ Range/Units 09:20 WBC (4.0-11.0) th/mm3 RBC (4.00-5.30) mil/mm3 Hgb (11.6-15.3) gm/dL Hct (35.0-46.0) % MCV (80.0-100.0) fL MCH (27.0-34.0) pg MCHC (32.0-36.0) % RDW (11.6-17.2) % Plt Count (150-450) th/mm3 MPV (7.0-11.0) fL Neut % (Auto) (16.0-70.0) % Lymph % (Auto) (9.0-44.0) % Evangeline % (Auto) (0.0-8.0) % Eos % (Auto) (0.0-4.0) % Baso % (Auto) (0.0-2.0) % Neut # (Auto) (1.8-7.7) th/mm3 Lymph # (Auto) (1.0-4.8) th/mm3 Evangeline # (Auto) (0.0-0.9) th/mm3 Eos # (Auto) (0.0-0.4) th/mm3 Baso # (Auto) (0.0-0.2) th/mm3 WBC Differential Differential Comment PT (9.8-11.6) sec INR Ratio APTT (24.3-30.1) sec Sodium (136-145) meq/L Potassium (3.5-5.1) meq/L Chloride (98-107) meq/L Carbon Dioxide (21.0-32.0) meq/L Anion Gap (5-15) meq/L BUN (7-18) mg/dL Creatinine (0.50-1.00) mg/dL Estimated GFR (>89) mL/min Random Glucose (74-106) mg/dL Calcium (8.5-10.1) mg/dL Total Bilirubin (0.2-1.0) mg/dL AST (15-37) U/L ALT (10-53) U/L Alkaline Phosphatase (45-117) U/L Total Creatine Kinase (26-192) U/L CK-MB (CK-2) (0.5-3.6) ng/mL Troponin I (0.02-0.05) ng/mL B-Natriuretic Peptide 48 (0-100) pg/mL Total Protein (6.4-8.2) g/dL Albumin (3.4-5.0) g/dL Lipase (73-393) U/L Imaging Data Radiologist's impression: Chest X-Ray 01/19/18 09:21 CONCLUSION: Negative examination. ECG Data EKG Prior to Arrival: No Attestation: I personally reviewed and interpreted this ECG as follows: Interpretation: Normal sinus rhythm 69 bpm OK interval 147 ms, QTC 417. Nonspecific ST-T wave abnormalities. No signs of acute ischemia. Discharge Plan Discharge Disposition Patient Disposition: 30 Still Patient Discharge Condition Condition: Good Discharge Details Diagnosis: Atypical chest pain Physicians Team ED Provider: Bernardo Barrera Primary Care Provider: UNKNOWN, Rxs /Orders / Referrals /Forms Prescriptions: No Action aspirin [Aspir-81] 81 mg Tablet,Delayed Release (Dr/Ec) 81 mg PO DAILY RF: 0 atenolol 25 mg Tablet 25 mg PO DAILY RF: 0 Discharge Instructions Patient Printed Instructions: Chest Pain (ED) Discharge Interventions Interventions: Vital Signs Last Done: 01/19/18 08:56 Status ED Status: With Doctor
[2018-01-19 09:41] LABS: Baso % (Auto) 0.5 % (0.0-2.0); Eos # (Auto) 0.1 th/mm3 (0.0-0.4); Eos % (Auto) 1.8 % (0.0-4.0); Hematocrit 38.9 % (35.0-46.0); Hemoglobin 12.7 gm/dL (11.6-15.3); Lymph # (Auto) 1.8 th/mm3 (1.0-4.8); Lymph % (Auto) 22.5 % (9.0-44.0); Mean Corpuscular HGB Conc 32.6 % (32.0-36.0); Mean Corpuscular Hemoglobin 29.2 pg (27.0-34.0); Mean Corpuscular Volume 89.6 fL (80.0-100.0); Mono # (Auto) 0.4 th/mm3 (0.0-0.9); Mono % (Auto) 4.7 % (0.0-8.0); Neut # (Auto) 5.7 th/mm3 (1.8-7.7); Neut % (Auto) 70.5 % (16.0-70.0); Platelet Count 359 th/mm3 (150-450); Red Blood Count 4.35 mil/mm3 (4.00-5.30); Red Cell Distribution Width 13.7 % (11.6-17.2); White Blood Count 8.1 th/mm3 (4.0-11.0)
[2018-01-19 09:49] LABS: Activated Partial Thrombo Time 25.7 sec (24.3-30.1); INR 1.1 Ratio; Prothrombin Time 10.9 sec (9.8-11.6)
[2018-01-19 09:54] LABS: Albumin 3.5 g/dL (3.4-5.0); Anion Gap 8 meq/L (5-15); Aspartate Aminotransferase 24 U/L (15-37); Blood Urea Nitrogen 11 mg/dL (7-18); Carbon Dioxide 27.5 meq/L (21.0-32.0); Chloride 107 meq/L (98-107); Glomerular Filtration Rate Greater Than 89 mL/min (>89); Glucose,Random 148 mg/dL (74-106); Lipase 108 U/L (73-393); Potassium 3.7 meq/L (3.5-5.1); Sodium 142 meq/L (136-145)
[2018-01-19 09:55] LABS: Alanine Aminotransferase 34 U/L (10-53)
[2018-01-19 09:59] LABS: Alkaline Phosphatase 95 U/L (45-117); Creatine Kinase 159 U/L (26-192); Total Protein 8.2 g/dL (6.4-8.2)
[2018-01-19] MEDS ORDERED: Acetaminophen 500 MG Tablet PO PRN (12:45)
--- NOTE | 2018-01-19 14:06 | TR ---
Date Performed: 01/19/2018 Time Performed: 12:26:04 DOCTOR: Jony Nails DRUG LIST: CLINICAL HISTORY: REASON FOR TEST: REASON FOR ENDING: OBSERVATION: CONCLUSION: SKINNY PROTOCOL CONVERTED TO MANUAL. TEST STOPPED AFTER REACHING GOAL HR SECONDARY TO CHRONIC RT HIP PAIN.Maximum CI=064 % Max HR Achieved=86.0% Total Exercise Time=4:44 COMMENTS: Patient exercised using the Skinny protocol. No electrocardiographic changes were seen to suggest ischemia. Hemodynamic response to exercise was normal. No significant arrhythmia was prese nt.
--- NOTE | 2018-01-19 14:12 | ECG ---
Date Performed: 01/19/2018 Time Performed: 09:12:05 PTAGE: 52 years EKG: Sinus rhythm NORMAL ECG PREVIOUS TRACING : 06/15/2017 20.06 Since previous tracing, no significant change noted DOCTOR: Jony Nails Interpretating Date/Time 01/19/2018 14:11:02
[2018-01-19 14:27] LABS: Creatine Kinase 145 U/L (26-192)
== END 2018-01-19 15:20 | disposition home or self-care (01) ==
LOC: NEDA 08:45 → NEPC 08:45 → NEPFCDU 12:16
PROVIDERS: ADMIT Internal Medicine Cardiovascular Disease; ATTEND Internal Medicine Cardiovascular Disease
DX: I48.91 Unspecified atrial fibrillation; I25.10 Atherosclerotic heart disease of native coronary artery without angina pectoris; Z98.51 Tubal ligation status; Z88.5 Allergy status to narcotic agent; I10 Essential (primary) hypertension; Z88.8 Allergy status to other drugs, medicaments and biological substances; R07.9 Chest pain, unspecified; J44.9 Chronic obstructive pulmonary disease, unspecified; Z79.01 Long term (current) use of anticoagulants; Z88.1 Allergy status to other antibiotic agents; Z87.442 Personal history of urinary calculi